=== PATIENT | male | born 1960 | race African-American/Black ===

== ENCOUNTER 2021-07-22 08:56 | Inpatient (IN) | payer OTHER ==
[~2021-07-22] VITALS: Ht 170.2 cm; Wt 63.5 kg
[2021-07-22] VITALS (32 sets, daily range): BP systolic 94–183; BP diastolic 58–119
[2021-07-22] MEDS ORDERED: SODIUM CHLORIDE 0.9% 1,000 ML IV ONE (09:30)
[2021-07-22 09:59] LABS: HEMATOCRIT. 47.6 % (42.0-52.0); HEMOGLOBIN. 16.3 g/dL (14.0-18.0); MEAN CORPUSCULAR HEMOGLOBIN 31.1 pg (28.0-32.0); MEAN CORPUSCULAR VOLUME 90.8 fL (80.0-94.0); MEAN PLATELET VOLUME 8.1 fl (7.4-10.4); PLATELET 208 x1000/uL (130-400); RED BLOOD CELL COUNT 5.24 mill/uL (4.7-6.1)
[2021-07-22] MEDS ORDERED: MORPHINE SULFATE 4 MG/ML CPJ (NOT FOR IM USE) IV ONE (10:00)
[2021-07-22 10:09] LABS: CHLORIDE 103 mEq/L (98-107)
[2021-07-22 11:11] LABS: CLARITY URINE CLEAR (CLEAR); COLOR URINE YELLOW (YELLOW); KETONES URINE 1+ (NEGATIVE); LEUKOCYTE ESTERASE URINE NEGATIVE (NEGATIVE); NITRITE URINE NEGATIVE (NEGATIVE); OCCULT BLOOD URINE 1+ (NEGATIVE); PROTEIN URINE 2+ (NEGATIVE); SPECIFIC GRAVITY URINE 1.012 (1.005-1.030); UROBILINOGEN URINE 0.2 E.U./dL (0.2-1.0)
[2021-07-22] MEDS ORDERED: FENTANYL CITRATE/PF 50MCG/ML 2ML VIAL IV ONE (11:45)
[2021-07-22] MEDS ORDERED: IOHEXOL-300 100 ML BOTTLE ONE (11:55)
[2021-07-22 12:40] LABS: PLATELET ESTIMATE NORMAL
[2021-07-22] MEDS ORDERED: FENTANYL CITRATE/PF 50MCG/ML 2ML VIAL IV NR (13:15)
[2021-07-22] MEDS ORDERED: ESMOLOL 2500MG PREMIX 250 ML IV ONE ×2 (13:45)
[2021-07-22] MEDS ORDERED: IOHEXOL-350 100 ML BOTTLE ONE (13:51)
[2021-07-22] MEDS ORDERED: ESMOLOL HCL 10MG/ML 10ML VIAL IV ONE (14:15)
[2021-07-22] MEDS ORDERED: LABETALOL HCL VIAL 20 MG/4 ML VIAL IV ONE (15:00)
[2021-07-22] MEDS ORDERED: LABETALOL 5MG/ML SYR 20 MG/4 ML SYRINGE IV NR (15:15)
[2021-07-22] MEDS ORDERED: ONDANSETRON HCL 4MG/2ML INJ IV PRN (15:45)
[2021-07-22] MEDS ORDERED: POTASSIUM CHLORIDE INJ 40 MEQ in DEXT 5% WATER 250 ML IV ONE (15:45)
[2021-07-22] MEDS ORDERED: IPRATROPIUM/ALBUTEROL 0.5-3(2.5)MG/3ML NEB NEB PRN (15:45)
[2021-07-22] MEDS ORDERED: LORAZEPAM 2MG/ML CPJ IV PRN (15:45)
[2021-07-22] MEDS ORDERED: DIPHENHYDRAMINE 50MG/ML VIAL IV PRN (15:45)
[2021-07-22] MEDS ORDERED: ACETAMINOPHEN 650MG SUPP PR PRN (15:45)
[2021-07-22] MEDS ORDERED: MORPHINE SULFATE 2 MG/ML CPJ (NOT FOR IM USE) IV PRN (15:45)
[2021-07-22] MEDS ORDERED: HYDRALAZINE 20MG/ML VIAL IV PRN (15:45)
[2021-07-22] MEDS ORDERED: NICARDIPINE 100 MG in SODIUM CHLORIDE 0.9% 60 ML IV PRN ×2 (16:00→16:15)
[2021-07-22] MEDS: NICARDIPINE 100 MG in SODIUM CHLORIDE 0.9% 60 ML IV PRN (16:12)
[2021-07-22] MEDS: DEXT 5%/0.45% NACL 1000ML 1,000 ML IV SCH (16:24)
[2021-07-22] MEDS ORDERED: ESMOLOL 2500MG PREMIX 250 ML IV PRN (16:30)
[2021-07-22] MEDS ORDERED: HYDRALAZINE 20MG/ML VIAL IV NR (16:30)
[2021-07-22] MEDS: KCL 20MEQ/100ML X 2 FOR TOTAL KCL 40MEQ/200ML IV SCH ×2 (16:34→18:36)
[2021-07-22] MEDS ORDERED: NALOXONE HCL 0.4MG/ML VIAL IV PRN (17:00)
[2021-07-22] MEDS: FAMOTIDINE 20MG/2ML VIAL IV SCH (17:27)
[2021-07-22] MEDS ORDERED: LEVOFLOXACIN 500MG PREMIX 100 ML IV SCH (18:00)
[2021-07-22 23:16] LABS: *AMPHETAMINES SCREEN URINE NEGATIVE (NEGATIVE); *BARBITURATES SCREEN URINE NEGATIVE (NEGATIVE); *BENZODIAZEPINES SCREEN URINE NEGATIVE (NEGATIVE); *COCAINE SCREEN URINE PRESUMTIVE POSITIVE (NEGATIVE); CANNABINOID URINE SCREEN PRESUMTIVE POSITIVE (NEGATIVE); METHADONE URINE SCREEN NEGATIVE (NEGATIVE); OPIATES URINE SCREEN PRESUMTIVE POSITIVE (NEGATIVE); PHENCYCLIDINE URINE SCREEN NEGATIVE (NEGATIVE)
[2021-07-22 23:37] LABS: CREATINE KINASE 1307 IU/L (39-308); CREATINE KINASE MB FRACTION 14.8 ng/mL (0.5-3.6)
[2021-07-23] VITALS (98 sets, daily range): BP systolic 76–165; BP diastolic 41–103
[2021-07-23 06:17] LABS: BASOPHILS % 0.3 % (0.0-2.0); EOSINOPHILS % 0.2 % (0.0-5.0); HEMATOCRIT. 44.7 % (42.0-52.0); HEMOGLOBIN. 15.6 g/dL (14.0-18.0); LYMPHOCYTES % 8.7 % (20.0-50.0); MEAN CORPUSCULAR HEMOGLOBIN 31.4 pg (28.0-32.0); MEAN CORPUSCULAR VOLUME 89.8 fL (80.0-94.0); MEAN PLATELET VOLUME 8.2 fl (7.4-10.4); MONOCYTES % 10.3 % (2.0-8.0); NEUTROPHILS % 80.5 % (40.0-76.0); PLATELET 184 x1000/uL (130-400); RED BLOOD CELL COUNT 4.97 mill/uL (4.7-6.1); RED CELL DISTRIBUTION WIDTH 14.2 % (11.6-14.6)
[2021-07-23] MEDS: DEXT 5%/0.45% NACL 1000ML 1,000 ML IV SCH ×2 (06:25→21:20)
[2021-07-23] MEDS: NICARDIPINE 100 MG in SODIUM CHLORIDE 0.9% 60 ML IV PRN (06:34)
[2021-07-23 06:45] LABS: CHLORIDE 104 mEq/L (98-107)
[2021-07-23 06:57] LABS: CREATINE KINASE MB FRACTION 13.1 ng/mL (0.5-3.6)
[2021-07-23 07:09] LABS: HDL CHOLESTEROL 95 mg/dL (40-59); LDL CHOLESTEROL 86 mg/dL (5-100)
[2021-07-23] MEDS ORDERED: METOPROLOL TARTRATE 25MG TABLET PO NR (08:15)
[2021-07-23] MEDS: FAMOTIDINE 20MG/2ML VIAL IV SCH (09:02)
[2021-07-23] MEDS: LOSARTAN POTASSIUM 50 MG TABLET PO SCH (09:03)
[2021-07-23] MEDS: METOPROLOL TARTRATE 25MG TABLET PO SCH (09:03)
[2021-07-23] MEDS ORDERED: MAGNESIUM 2 G PREMIX 50 ML IV NR (13:00)
[2021-07-23 14:00] LABS: CREATINE KINASE MB FRACTION 10.4 ng/mL (0.5-3.6)
[2021-07-23] MEDS: LEVOFLOXACIN 500MG PREMIX 100 ML IV SCH (16:53)
[2021-07-23] MEDS ORDERED: ACETAMINOPHEN 325MG TABLET PO PRN (17:00)
[2021-07-24] VITALS (57 sets, daily range): BP systolic 95–172; BP diastolic 46–108
[2021-07-24] MEDS: LOSARTAN POTASSIUM 50 MG TABLET PO SCH ×2 (01:37→09:13)
[2021-07-24] MEDS: METOPROLOL TARTRATE 25MG TABLET PO SCH ×2 (01:37→09:13)
[2021-07-24 05:46] LABS: BASOPHILS % 0.4 % (0.0-2.0); EOSINOPHILS % 0.4 % (0.0-5.0); HEMATOCRIT. 42.3 % (42.0-52.0); HEMOGLOBIN. 14.6 g/dL (14.0-18.0); LYMPHOCYTES % 11.9 % (20.0-50.0); MEAN CORPUSCULAR HEMOGLOBIN 30.9 pg (28.0-32.0); MEAN CORPUSCULAR VOLUME 89.3 fL (80.0-94.0); MONOCYTES % 13.1 % (2.0-8.0); NEUTROPHILS % 74.2 % (40.0-76.0); RED BLOOD CELL COUNT 4.74 mill/uL (4.7-6.1); RED CELL DISTRIBUTION WIDTH 13.8 % (11.6-14.6)
[2021-07-24 05:48] LABS: CHLORIDE 103 mEq/L (98-107)
[2021-07-24 06:41] LABS: PLATELET ESTIMATE NORMAL
[2021-07-24] MEDS: NICARDIPINE 100 MG in SODIUM CHLORIDE 0.9% 60 ML IV PRN (06:41)
[2021-07-24 06:42] LABS: MEAN PLATELET VOLUME 8.6 fl (7.4-10.4); PLATELET 169 x1000/uL (130-400)
[2021-07-24] MEDS: FAMOTIDINE 20MG/2ML VIAL IV SCH (09:13)
[2021-07-24] MEDS: DEXT 5%/0.45% NACL 1000ML 1,000 ML IV SCH (09:15)
[2021-07-24] MEDS ORDERED: METOPROLOL TARTRATE 25MG TABLET PO NR (10:45)
[2021-07-24] MEDS ORDERED: METO-539 MT (12:41)
[2021-07-24] MEDS ORDERED: LOSA50TA3 MT (12:41)
[2021-07-24] MEDS: LEVOFLOXACIN 500MG PREMIX 100 ML IV SCH (13:37)
[2021-07-24] MEDS ORDERED: AMLODIPINE 5MG TABLET PO SCH (21:00)
[2021-07-24] MEDS ORDERED: METOPROLOL TARTRATE 50MG TABLET PO SCH (21:00)
[2021-07-24] MEDS ORDERED: METOPROLOL TARTRATE 25MG TABLET PO SCH (21:00)
== END 2021-07-24 14:19 | disposition short-term general hospital (02) | DRG 300 ==
LOC: ER 08:56 → CVICU 14:59 → EDBEDREQ 15:01 → EDBEDREQTM 15:01 → EDBEDREQSVC 15:01 → ENRESERV 15:16 → SUPCPDRO 15:30
PROVIDERS: ADMIT Internal Medicine; ATTEND Internal Medicine
PROC: 05HY33Z Insertion of Infusion Device into Upper Vein, Percutaneous Approach (ICD-10-PCS; principal; 2021-07-23)
DX: I71.01 Dissection of thoracic aorta (principal); I16.1 Hypertensive emergency; N39.0 Urinary tract infection, site not specified; E78.5 Hyperlipidemia, unspecified; E87.6 Hypokalemia; E83.42 Hypomagnesemia; D72.828 Other elevated white blood cell count; I72.8 Aneurysm of other specified arteries; R73.9 Hyperglycemia, unspecified; F19.10 Other psychoactive substance abuse, uncomplicated; F14.10 Cocaine abuse, uncomplicated; F17.200 Nicotine dependence, unspecified, uncomplicated; Z88.0 Allergy status to penicillin; Z20.822 Contact with and (suspected) exposure to COVID-19
CPT/HCPCS: 36415; 71045; 71275; 74177; 76937; 80048; 80053; 80061; 80076; 80305; 81003; 82550; 82553; 83735; 84443; 84484; 85025; 86850; 86900; 87426; 93005; 93306; 93970; 99285; C1725; J0360; J1956; J2060; J2270; J3010; J3475; J3480; J3490; J7030; J7050; Q9967